=== PATIENT | male | born 1965 | race Asian ===

== ENCOUNTER → 2023-01-11 08:08 | Outpatient (BNVA) | payer OTHER, SELFPAY | PROVIDERS: PCP Internal Medicine; Visit Provider Internal Medicine Rheumatology ==

== ENCOUNTER 2023-01-11 08:49 | Outpatient (REF) | payer OTHER, SELFPAY ==
[2023-01-11 10:32] LABS: MANUAL DIFF FLAG NO
[2023-01-11 10:42] LABS: Basophils Absolute Auto 0.1 X10*3/uL (0.0-0.2); Basophils Percent Auto 0.7 % (0-2); Eosinophils Absolute Auto 0.5 X10*3/uL (0.0-0.4); Eosinophils Percent Auto 6.1 % (0-4); Hematocrit 44.1 % (42.0-52.0); Imm Gran Abs Auto 0.02 X10*3/uL (0.00-0.03); Imm Gran Pct Auto 0.2 % (0.0-0.4); Lymphocytes Absolute Auto 4.2 X10*3/uL (1.2-4.9); Lymphocytes Percent Auto 49.8 % (20-40); Mean Corpuscular Hemoglobin 30.7 pg (27.0-33.0); Mean Corpuscular Volume 90.2 fL (80.0-98.0); Mean Platelet Volume 9.7 fL (9.4-12.4); Monocytes Absolute Auto 0.5 X10*3/uL (0.1-1.2); Monocytes Percent Auto 6.4 % (2-11); Neutrophils Absolute Auto 3.1 x10*3/uL (2.0-8.3); Neutrophils Percent Auto 36.8 % (45-73); Platelet Count 231 X10*3/uL (160-400); Red Blood Count 4.89 X10*6/uL (4.60-5.80); Red Cell Distribution Width 14.2 % (11.0-16.0); White Blood Count 8.3 X10*3/uL (4.8-10.8)
[2023-01-11 11:24] LABS: Erythrocyte Sedimentation Rate 7 MM/HR (0-15)
[2023-01-11 12:12] LABS: Alanine Aminotransferase 32 U/L (0-40); Aspartate Amino Transferase 26 U/L (5-37); C Reactive Protein < 0.10 mg/dL (< or = 0.50); Estimated Glomerular Filt Rate > 60
== END 2023-01-11 08:50 | disposition home or self-care (01) ==
LOC: HO.10HDL 08:49
PROVIDERS: Visit Provider Internal Medicine Rheumatology
DX: L40.50 Arthropathic psoriasis, unspecified (principal); Z79.60 Long term (current) use of unspecified immunomodulators and immunosuppressants; Z79.899 Other long term (current) drug therapy
CPT/HCPCS: 36415; 82565; 84450; 84460; 85025; 85652; 86140

== ENCOUNTER 2023-05-12 10:16 | Outpatient (AMB) | payer OTHER, SELFPAY ==
--- NOTE | 2023-05-12 10:39 | MHC.OFFVIS ---
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 He still notes some discomfort in the right 2nd finger and right 3rd toe. Most of the time he just describes this as feeling swollen and not too much pain. There has been no psoriasis recently. He remains on Humira 40 mg every 2 weeks, methotrexate 20 mg weekly, and folic acid 1 mg daily. He does not seem to have any side effects to these medications as far as he can determine. [facility] Medical History (Updated 01/11/23 @ 08:54 by Maria Guadalupe Bañuelos [facility]) YAMEL (obstructive sleep apnea) GERD (gastroesophageal reflux disease) Hypertension Psoriasis Psoriatic arthritis Surgical History History of laparoscopic appendectomy Family History Mother Hypertension Diabetes Father Hypertension Sister Hypertension Stroke Breast cancer Brother Hypertension Social History Alcohol intake: current Alcohol intake frequency: holidays/special occasions only Alcohol type: beer Patient Tobacco Use Status: Former Tobacco user Quit Date: 2001 Review of Systems Const Details: Negative for appetite change, weight change, fever, chills, malaise and fatigue Eyes Details: Negative for vision change, dry eyes,headaches and dizziness Skin/Breast Details: Negative for itching, rash, hives, Raynaud's symptoms, sun sensitivity, and skin cancer Endo Details: Negative for polyuria and polydypsia David/Lymph Details: Negative for excessive bruising or bleeding. Physical Exam Vital Signs: Last Vital Signs Temp 98.1 F 05/12/23 10:40 Pulse 69 05/12/23 10:40 BP 98/78 05/12/23 10:40 Pulse Ox 96 05/12/23 10:40 Oxygen Delivery Method Room Air 05/12/23 10:40 BMI result Body Mass Index 33.6 APPEARANCE: Patient in no acute distress EYES no redness, pupils equal and reactive to light, eyelids normal EXTREMITIES: No edema, no calf tenderness, normal peripheral pulses. SKIN: No psoriatic lesions appreciated. JOINT EXAM:.?? Cervical Spine:.? Full range of motion without pain; no tenderness. Thoracic Spine:.? No scoliosis.? No tenderness on palpation. Lumbar Spine:.? Alignment normal.? Full range of motion without pain, no tenderness. Chest Wall:.? No tenderness, swelling, increased warmth or erythema. Hands:.? Right: No MCP swelling or tenderness. Slight thickening and tenderness at the 2nd and PIP. Slight bony enlargement with no tenderness at the thumb IP. Other joints have normal pain-free range of motion without tenderness or swelling. Left: Normal pain-free range of motion without tenderness, swelling, increased warmth or erythema. Able to make a full fist and has a good supervisor electric motor testing strength. Wrists:? Left: Slight discomfort with 80 degrees flexion extension with some slight dorsal tenderness but no swelling. Right: Normal pain-free range of motion without tenderness, swelling, increased warmth or erythema. Elbows:. Left: Slight medial pain at the extremes of full extension. There is some minimal medial epicondylar tenderness but no redness or swelling. Right: Normal pain-free range of motion without tenderness, swelling, increased warmth or erythema. Shoulders:.?? Full range of motion with slight discomfort at the extremes of motion. There is some minimal anterior tenderness without adenopathy, weakness, swelling, increased warmth or erythema. Hips:.? Full range of motion with slight lateral and groin pain with extremes of normal internal or external rotation. Hip bursa:.? Mild trochanteric tenderness. Knees:.?? Normal pain-free range of motion without tenderness, swelling, increased warmth or erythema.? There is no effusion or crepitation Ankles:.? Normal pain-free range of motion without tenderness, swelling, increased warmth or erythema. Feet:.? Right: There is some slight thickening and tenderness at the 3rd toe. This is minimal compared to previously. There is no redness or warmth or breakdown of the skin. Left: Slight thickening at the 2nd toe consistent with some very mild dactylitis, again less prominent than had been previously. The digit has minimal tenderness. Tender points:? No tenderness to digital palpation at the occiput, trapezius, second rib, lateral epicondyle, knees, greater trochanter and gluteal area bilaterally. 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 I do not see any signs of active psoriasis at all today. The blood work in January looked okay so but he is due for another lab work today. Assuming those are okay we will continue with current treatment. A return visit 3 months is recommended. Orders: Orders Erythrocyte Sedimentation Rate Today L40.50 - Arthropathic psoriasis, unspecified Complete Blood Count Auto Diff Today L40.50 - Arthropathic psoriasis, unspecified, Z79.899 - Other penit[facility]iary (current) drug therapy C Reactive Protein Today L40.50 - Arthropathic psoriasis, unspecified Alanine Aminotransferase Today L40.50 - Arthropathic psoriasis, unspecified, Z79.899 - Other penitentiary (current) drug therapy Aspartate Amino Transferase Today L40.50 - Arthropathic psoriasis, unspecified, Z79.899 - Other penitentiary (current) drug therapy Creatinine Today L40.50 - Arthropathic psoriasis, unspecified, Z79.899 - Other penitentiary (current) drug therapy Medications: New folic acid 1 mg PO DAILY 90 tabs 3RF L40.50 - Arthropathic psoriasis, unspecified Coding Level of Care Code Est Pt Level 3 (89536) Diagnoses Psoriasis L40.9 Long-term use of immunosuppressant medication Z79.60 Psoriatic arthritis L40.50
[2023-05-12 10:40] VITALS: BP 98/78; PULSE 69; TEMP 36.7; O2SAT 96; BMI 33.6
== END 2023-05-12 10:56 | disposition home or self-care (01) ==
PROVIDERS: PCP Internal Medicine; Visit Provider Internal Medicine Rheumatology
DX: L40.9 Psoriasis, unspecified (principal); Z79.60 Long term (current) use of unspecified immunomodulators and immunosuppressants; L40.50 Arthropathic psoriasis, unspecified
CPT/HCPCS: 99213

== ENCOUNTER → 2023-05-12 10:16 | Outpatient (BNVA) | payer OTHER, SELFPAY | PROVIDERS: PCP Internal Medicine; Visit Provider Internal Medicine Rheumatology ==

== ENCOUNTER 2023-05-12 11:11 | Outpatient (REF) | payer OTHER, SELFPAY ==
[2023-05-12 11:57] LABS: MANUAL DIFF FLAG NO
[2023-05-12 12:22] LABS: Basophils Percent Auto 0.4 % (0-2); Eosinophils Absolute Auto 0.2 X10*3/uL (0.0-0.4); Eosinophils Percent Auto 2.3 % (0-4); Hematocrit 47.8 % (42.0-52.0); Imm Gran Abs Auto 0.02 X10*3/uL (0.00-0.03); Imm Gran Pct Auto 0.3 % (0.0-0.4); Lymphocytes Absolute Auto 3.7 X10*3/uL (1.2-4.9); Lymphocytes Percent Auto 53.6 % (20-40); Mean Corpuscular HGB Conc 33.5 g/dl (31.0-36.0); Mean Corpuscular Hemoglobin 30.1 pg (27.0-33.0); Mean Corpuscular Volume 89.8 fL (80.0-98.0); Mean Platelet Volume 9.9 fL (9.4-12.4); Monocytes Absolute Auto 0.5 X10*3/uL (0.1-1.2); Monocytes Percent Auto 7.1 % (2-11); Neutrophils Absolute Auto 2.5 x10*3/uL (2.0-8.3); Neutrophils Percent Auto 36.3 % (45-73); Platelet Count 223 X10*3/uL (160-400); Red Blood Count 5.32 X10*6/uL (4.60-5.80); Red Cell Distribution Width 13.8 % (11.0-16.0); White Blood Count 6.9 X10*3/uL (4.8-10.8)
[2023-05-12 12:29] LABS: Alanine Aminotransferase 32 U/L (0-40); Aspartate Amino Transferase 26 U/L (5-37); C Reactive Protein < 0.10 mg/dL (< or = 0.50); Estimated Glomerular Filt Rate > 60
[2023-05-12 13:44] LABS: Erythrocyte Sedimentation Rate 7 MM/HR (0-15)
== END 2023-05-12 11:12 | disposition home or self-care (01) ==
LOC: HO.10HDL 11:11
PROVIDERS: Visit Provider Internal Medicine Rheumatology
DX: L40.50 Arthropathic psoriasis, unspecified (principal); Z79.899 Other long term (current) drug therapy
CPT/HCPCS: 36415; 82565; 84450; 84460; 85025; 85652; 86140

== ENCOUNTER 2023-08-10 10:14 | Outpatient (AMB) | payer OTHER, SELFPAY ==
[2023-08-10 10:15] VITALS: BP 112/78; PULSE 86; RESP 15; TEMP 36.2; O2SAT 99; BMI 32.9
--- NOTE | 2023-08-10 10:15 | MHC.OFFVIS ---
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 He remains on methotrexate 20 mg weekly, Humira 40 mg every 2 weeks and folic acid 1 mg daily. In general he has occasional irritation in the skin behind his ears consistent with psoriasis. He has a topical corticosteroid liquid for that. He does get occasional pain in the PIP's in the toes. These are relatively minimally bothersome at present there do not appear to be any side effects with the medications. [facility] Medical History YAMEL (obstructive sleep apnea) GERD (gastroesophageal reflux disease) Hypertension Psoriasis Psoriatic arthritis Surgical History History of laparoscopic appendectomy Family History Mother Hypertension Diabetes Father Hypertension Sister Hypertension Stroke Breast cancer Brother Hypertension Social History Alcohol intake: current Alcohol intake frequency: holidays/special occasions only Alcohol type: beer Patient Tobacco Use Status: Former Tobacco user Quit Date: 2001 Review of Systems Const Details: Negative for appetite change, weight change, fever, chills, malaise and fatigue Eyes Details: Negative for vision change, dry eyes,headaches and dizziness ENT Details: Negative for hearing change, tinnitus, oral ulcer, nose bleeds and oral dryness. Card Details: Negative chest pain, edema and syncope Resp Details: Negative for SOB, cough and wheezing GI Details: Negative indigestion/heartburn, nausea, abdominal pain, bowel changes, diarrhea, constipation and bloody stool. David/Lymph Details: Negative for excessive bruising or bleeding. Physical Exam Vital Signs: Last Vital Signs Temp 97.2 F 08/10/23 10:15 Pulse 86 08/10/23 10:15 Resp 15 08/10/23 10:15 BP 112/78 08/10/23 10:15 Pulse Ox 99 08/10/23 10:15 Oxygen Delivery Method Room Air 08/10/23 10:15 BMI result Body Mass Index 32.9 APPEARANCE: Patient in no acute distress EYES no redness, pupils equal and reactive to light, eyelids normal EXTREMITIES: No edema, no calf tenderness, normal peripheral pulses. SKIN: There is some slight redness behind the left ear but no other skin lesions are notable today. JOINT EXAM:.?? Cervical Spine:.? Full range of motion without pain; no tenderness. Thoracic Spine:.? No scoliosis.? No tenderness on palpation. Lumbar Spine:.? Alignment normal.? Full range of motion without pain, no tenderness. Chest Wall:.? No tenderness, swelling, increased warmth or erythema. Hands:.? Right: No MCP swelling or tenderness. Slight thickening at the thumb IP, 2nd PIP, 3rd PIP and 5th PIP. Third PIP has some minimal tenderness. No flexor tendon triggering. Other joints have normal pain-free range of motion without tenderness or swelling. Left: Normal pain-free range of motion with slight thickening and tenderness at the 3rd PIP. Elsewhere no tenderness, swelling, increased warmth or erythema. Able to make a full fist and has a good reconcilement clerk strength. Wrists:? Left: Slight discomfort with 80 degrees flexion extension with some slight dorsal tenderness but no swelling. Right: Normal pain-free range of motion without tenderness, swelling, increased warmth or erythema. Elbows:. Left: Slight medial pain at the extremes of full extension. There is some minimal medial epicondylar tenderness but no redness or swelling. Right: Normal pain-free range of motion without tenderness, swelling, increased warmth or erythema. Shoulders:.?? Full range of motion with slight discomfort at the extremes of motion. There is some minimal anterior tenderness without adenopathy, weakness, swelling, increased warmth or erythema. Hips:.? Full range of motion with slight lateral and groin pain with extremes of normal internal or external rotation. Hip bursa:.? Mild trochanteric tenderness. Knees:.?? Normal pain-free range of motion without tenderness, swelling, increased warmth or erythema.? There is no effusion or crepitation Ankles:.? Normal pain-free range of motion without tenderness, swelling, increased warmth or erythema. Feet:? Right: There is some slight thickening and tenderness at the 2nd toe. This is minimal compared to previously. There is no redness or warmth or breakdown of the skin. Left: Slight thickening at the 2nd toe consistent with some very mild dactylitis, again less prominent than had been previously. The digit has minimal tenderness. Tender points:? No tenderness to digital palpation at the occiput, trapezius, second rib, lateral epicondyle, knees, greater trochanter and gluteal area bilaterally. ? Results Reviewed Results Reviewed: Laboratory Tests 05/12/23 11:20 WBC 6.9 Hgb 16.0 ESR 7 Creatinine 1.06 AST 26 ALT 32 C-Reactive Protein < 0.10 Assessment & Plan Assessment & Plan (1) Psoriasis: Code(s): L40.9 - Psoriasis, unspecified (2) Long-term use of immunosuppressant medication: Code(s): Z79.60 - half-way (current) use of unspecified immunomodulators and immunosuppressants (3) Psoriatic arthritis: Comment: Onset 10/2020 methotrexate started 01/2021 [place]ingo jon Code(s): L40.50 - Arthropathic psoriasis, unspecified Plan Psoriatic arthritis and psoriasis with good control of those disorders with current treatment. There is only some minimal dactylitis in the toes that really isn't bother him much so I do not think we need to change treatment. There is slight patch of psoriasis behind the left ear which is treated topically. He needs to have lab work to monitor his methotrexate use. If those look okay we can continue and plan to see him back in about 3-4 months. Medications: New methotrexate sodium 20 mg (8 x 2.5 mg) PO QWEEK 96 tabs 1RF L40.9 - Psoriasis, unspecified Refilled folic acid 1 mg PO DAILY 90 tabs 3RF L40.50 - Arthropathic psoriasis, unspecified Coding Level of Care Code Est Pt Level 3 (99435) Diagnoses Psoriasis L40.9 Long-term use of immunosuppressant medication Z79.60 Psoriatic arthritis L40.50
== END 2023-08-10 10:37 | disposition home or self-care (01) ==
LOC: HO.RHE 10:14
PROVIDERS: PCP Internal Medicine; Visit Provider Internal Medicine Rheumatology
DX: L40.9 Psoriasis, unspecified (principal); Z79.60 Long term (current) use of unspecified immunomodulators and immunosuppressants; L40.50 Arthropathic psoriasis, unspecified
CPT/HCPCS: 99213

== ENCOUNTER → 2023-08-10 10:14 | Outpatient (BNVA) | payer OTHER, SELFPAY | PROVIDERS: PCP Internal Medicine; Visit Provider Internal Medicine Rheumatology ==

== ENCOUNTER 2023-08-10 11:22 | Outpatient (REF) | payer OTHER, SELFPAY ==
[2023-08-10 13:14] LABS: MANUAL DIFF FLAG NO
[2023-08-10 13:41] LABS: Alanine Aminotransferase 29 U/L (0-40); Aspartate Amino Transferase 25 U/L (5-37); C Reactive Protein < 0.10 mg/dL (< or = 0.50); Estimated Glomerular Filt Rate > 60
[2023-08-10 13:43] LABS: Basophils Percent Auto 0.5 % (0-2); Eosinophils Absolute Auto 0.2 X10*3/uL (0.0-0.4); Eosinophils Percent Auto 2.2 % (0-4); Hematocrit 44.9 % (42.0-52.0); Imm Gran Abs Auto 0.01 X10*3/uL (0.00-0.03); Imm Gran Pct Auto 0.1 % (0.0-0.4); Lymphocytes Percent Auto 50.6 % (20-40); Mean Corpuscular HGB Conc 33.4 g/dl (31.0-36.0); Mean Corpuscular Hemoglobin 30.3 pg (27.0-33.0); Mean Corpuscular Volume 90.7 fL (80.0-98.0); Mean Platelet Volume 9.7 fL (9.4-12.4); Monocytes Absolute Auto 0.5 X10*3/uL (0.1-1.2); Neutrophils Absolute Auto 3.2 x10*3/uL (2.0-8.3); Neutrophils Percent Auto 40.6 % (45-73); Platelet Count 246 X10*3/uL (160-400); Red Blood Count 4.95 X10*6/uL (4.60-5.80); Red Cell Distribution Width 13.9 % (11.0-16.0); White Blood Count 7.8 X10*3/uL (4.8-10.8)
[2023-08-10 14:42] LABS: Erythrocyte Sedimentation Rate 6 MM/HR (0-15)
== END 2023-08-10 11:23 | disposition home or self-care (01) ==
LOC: HO.10HDL 11:22
PROVIDERS: Visit Provider Internal Medicine Rheumatology
DX: L40.50 Arthropathic psoriasis, unspecified (principal); Z79.899 Other long term (current) drug therapy
CPT/HCPCS: 36415; 82565; 84450; 84460; 85025; 85652; 86140

== ENCOUNTER 2023-12-13 08:39 | Outpatient (AMB) | payer OTHER, SELFPAY ==
--- NOTE | 2023-12-13 08:43 | A.OFFVIS_ITS ---
Intake Vital Signs 12/13/23 08:47 Height 5 ft 5 in Weight 201 lb 8.04 oz BMI 33.5 BP 120/80 Blood Pressure Location Rt brachial Position Sitting Pulse 71 Pulse Source Pulse Oximeter Temp 97.5 F Temp Source Skin Pulse Oximetry (%) 97 Oxygen Delivery Method Room Air Intake Visit Reasons: PSA/cm Intake Note: Patient last seen 08/10/[address] Sanders, presents today for follow up. 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 Cooper 58 yoM returns for follow-up of his psoriasis and psoriatic arthritis. He remains on methotrexate 20 mg weekly, Humira 40 mg every 2 weeks and folic acid 1 mg daily. He states that he is doing well and the medication is working. He takes tylenol occasionally. He has a small patch behind his left ear consistent with psoriasis and a spot on the the top lip. He uses a topical corticosteroid liquid for those areas. He does get occasional pain in the PIP's in the toes. These are relatively minimally bothersome at present. He denies side effects with the medications. Patient denies chest pains, heart palpitations. [facility] Medical History YAMEL (obstructive sleep apnea) GERD (gastroesophageal reflux disease) Hypertension Psoriasis Psoriatic arthritis Surgical History History of laparoscopic appendectomy Family History Mother Hypertension Diabetes Father Hypertension Sister Hypertension Stroke Breast cancer Brother Hypertension Social History Alcohol intake: current Alcohol intake frequency: holidays/special occasions only Alcohol type: beer Patient Tobacco Use Status: Former Tobacco user Quit Date: 2001 Physical Exam Vital Signs: Last Vital Signs Temp 97.5 F 12/13/23 08:47 Pulse 71 12/13/23 08:47 BP 120/80 12/13/23 08:47 Pulse Ox 97 12/13/23 08:47 Oxygen Delivery Method Room Air 12/13/23 08:47 BMI result Body Mass Index 33.5 APPEARANCE: Patient in no acute distress EYES no redness, pupils equal and reactive to light, eyelids normal EXTREMITIES: No edema, no calf tenderness, normal peripheral pulses. SKIN: There is some slight redness behind the left ear but no other skin lesions are notable today. JOINT EXAM:.?? Cervical Spine:.? Full range of motion without pain; no tenderness. Thoracic Spine:.? No scoliosis.? No tenderness on palpation. Lumbar Spine:.? Alignment normal.? Full range of motion without pain, no tenderness. Chest Wall:.? No tenderness, swelling, increased warmth or erythema. Hands:.? Right: No MCP swelling or tenderness. Slight thickening at the thumb IP, 2nd PIP, 3rd PIP and 5th PIP. Third PIP has no tenderness but cannot complete fold into fist No flexor tendon triggering. Other joints have normal pain-free range of motion without tenderness or swelling. Left: Normal pain- free range of motion but slight thickening that causes the 3rd PIP not to completely fold into fist. Elsewhere no tenderness, swelling, increased warmth or erythema. Able to make a full fist and has a good trailer steerer strength. Wrists:? Left: Slight discomfort with 80 degrees flexion extension with some slight dorsal tenderness but no swelling. Right: Normal pain-free range of motion without tenderness, swelling, increased warmth or erythema. Elbows:. Left: Slight medial pain at the extremes of full extension. There is some minimal medial epicondylar tenderness but no redness or swelling. Right: Normal pain-free range of motion without tenderness, swelling, increased warmth or erythema. Shoulders:.?? Full range of motion with slight discomfort at the extremes of motion. There is some minimal anterior tenderness without adenopathy, weakness, swelling, increased warmth or erythema. Hips:.? Full range of motion with slight lateral and groin pain with extremes of normal internal or external rotation. Hip bursa:.? Mild trochanteric tenderness. Knees:.?? Normal pain-free range of motion without tenderness, swelling, increased warmth or erythema.? There is no effusion or crepitation Ankles:.? Normal pain-free range of motion without tenderness, swelling, increased warmth or erythema. Feet:? Right: There is some slight thickening and but tenderness at the 2nd toe. This is minimal compared to previously. There is no redness or warmth or breakdown of the skin. Left: Slight thickening at the 2nd toe consistent with some very mild dactylitis, again less prominent than had been previously. The digit usually has minimal tenderness but not today Tender points:? No tenderness to digital palpation at the occiput, trapezius, second rib, lateral epicondyle, knees, greater trochanter and gluteal area bilaterally. ? 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 There remains some minimal dactylitis in the toes that is not bothersome and does not require a change treatment at this time. There is slight patch of psoriasis behind the left ear which is treated topically. We will continue MTX 20mg QW, Folic Acid 1mg QD and Humira 40 mg QOW #We will continue to monitor CBC and CMP. We will obtain labs 1 week before next visit. The patient knows to hold medications in the event of infections, fevers, surgery, or non-healing wounds. I spent 25 minutes reviewing history, evaluating patient and documenting. Orders: Orders C Reactive Protein 4 Months L40.50 - Arthropathic psoriasis, unspecified, Z79.60 - [facility] (current) use of unspecified immunomodulators and immunosuppressants Comprehensive Met. 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 immunomodulators and immunosuppressants Complete Blood Count Auto Diff 4 Months L40.50 - Arthropathic psoriasis, unspecified, Z79.60 - [facility] (current) use of unspecified immunomodulators and immunosuppressants Uric Acid 4 Months L40.50 - Arthropathic psoriasis, unspecified, 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
[2023-12-13 08:47] VITALS: BP 120/80; PULSE 71; TEMP 36.4; O2SAT 97; BMI 33.5
== END 2023-12-13 09:14 | disposition home or self-care (01) ==
PROVIDERS: PCP Internal Medicine; Visit Provider Nurse Practitioner Family
DX: L40.9 Psoriasis, unspecified (principal); Z79.60 Long term (current) use of unspecified immunomodulators and immunosuppressants; L40.50 Arthropathic psoriasis, unspecified
CPT/HCPCS: 99213

== ENCOUNTER → 2023-12-13 08:39 | Outpatient (BNVA) | payer OTHER, SELFPAY | PROVIDERS: PCP Internal Medicine; Visit Provider Nurse Practitioner Family ==

== ENCOUNTER 2024-04-09 11:00 | Outpatient (REF) | payer OTHER, SELFPAY ==
[2024-04-09 11:55] LABS: MANUAL DIFF FLAG NO
[2024-04-09 11:56] LABS: Basophils Percent Auto 0.3 % (0-2); Eosinophils Absolute Auto 0.1 X10*3/uL (0.0-0.4); Eosinophils Percent Auto 1.6 % (0-4); Hematocrit 45.6 % (42.0-52.0); Hemoglobin 15.4 g/dl (14.0-18.0); Imm Gran Abs Auto 0.01 X10*3/uL (0.00-0.03); Imm Gran Pct Auto 0.2 % (0.0-0.4); Lymphocytes Percent Auto 49.3 % (20-40); Mean Corpuscular HGB Conc 33.8 g/dl (31.0-36.0); Mean Corpuscular Hemoglobin 30.3 pg (27.0-33.0); Mean Corpuscular Volume 89.6 fL (80.0-98.0); Mean Platelet Volume 9.7 fL (9.4-12.4); Monocytes Absolute Auto 0.4 X10*3/uL (0.1-1.2); Monocytes Percent Auto 6.4 % (2-11); Neutrophils Absolute Auto 2.6 x10*3/uL (2.0-8.3); Neutrophils Percent Auto 42.2 % (45-73); Platelet Count 226 X10*3/uL (160-400); Red Blood Count 5.09 X10*6/uL (4.60-5.80); Red Cell Distribution Width 13.9 % (11.0-16.0); White Blood Count 6.1 X10*3/uL (4.8-10.8)
[2024-04-09 12:29] LABS: Alanine Aminotransferase 20 U/L (0-40); Albumin Level 4.3 g/dL (3.5-5.0); Alkaline Phosphatase 73 U/L (39-117); Anion Gap 12 (12-20); Aspartate Amino Transferase 18 U/L (5-37); Bilirubin Total 0.4 mg/dL (0.0-1.0); Blood Urea Nitrogen 20 mg/dL (9-16); C Reactive Protein < 0.10 mg/dL (< or = 0.50); Calcium 9.4 mg/dL (8.4-10.2); Carbon Dioxide 27 mmol/L (22-29); Chloride 109 mmol/L (96-108); Estimated Glomerular Filt Rate > 60; Glucose Random 107 mg/dL (60-115); Sodium 144 mmol/L (135-145); Total Protein 7.5 g/dL (6.5-8.0); Uric Acid 5.4 mg/dL (3.4-7.0)
[2024-04-09 12:35] LABS: Erythrocyte Sedimentation Rate 5 MM/HR (0-15)
[2024-04-10 11:19] LABS: Prot Elec - Albumin 4.1 g/dL (3.8-4.8); Prot Elec - Alpha1 0.2 g/dL (0.2-0.3); Prot Elec - Alpha2 0.7 g/dL (0.5-0.9); Prot Elec - Beta 1 0.5 g/dL (0.4-0.6); Prot Elec - Beta 2 0.5 g/dL (0.2-0.5); Prot Elec - Gamma 1.3 g/dL (0.8-1.7); Prot Elec - Total Protein 7.3 g/dL (6.1-8.1)
[2024-04-11 15:39] LABS: IgA 309 mg/dL (47-310); IgG 1315 mg/dL (600-1640); IgM 71 mg/dL (50-300)
== END 2024-04-09 11:01 | disposition home or self-care (01) ==
LOC: HO.10HDL 11:00
PROVIDERS: Visit Provider Nurse Practitioner Family
DX: Z79.60 Long term (current) use of unspecified immunomodulators and immunosuppressants (principal); L40.50 Arthropathic psoriasis, unspecified
CPT/HCPCS: 36415; 80053; 82784; 84165; 84550; 85025; 85652; 86140; 86334

== ENCOUNTER 2024-04-13 08:50 | Outpatient (AMB) | payer OTHER, SELFPAY ==
--- NOTE | 2024-04-13 08:58 | A.OFFVIS_ITS ---
Vital Signs 04/13/24 09:01 Height 5 ft 5 in Weight 200 lb 2.876 oz BMI 33.3 BP 118/80 Blood Pressure Location Rt brachial Position Sitting Pulse 57 Pulse Source Pulse Oximeter Pulse Oximetry (%) 95 Oxygen Delivery Method Room Air Intake Visit Reasons: PsO/PSA MTX and Humira/LM Intake Note: Patient presents for PsO/PsA MTX and Humira. Allergies prednisone Adverse Reaction (Unknown, Verified 04/13/24 09:00) Itching Medication List - Last Reconciled 04/13/24 by John Cruz MD adalimumab (Humira(CF) Pen) 40 mg (0.4 mL) subcut Q2W atorvastatin 10 mg PO DAILY betamethasone dipropionate 0.05% 1 appl topical DAILY fexofenadine 180 mg PO DAILY folic acid 1 mg PO DAILY lisinopril-hydrochlorothiazide 20-12.5 mg 1 tab PO BID methotrexate sodium 20 mg (8 x 2.5 mg) PO QWEEK HPI Comments Details: This is a 58-year-old male with psoriasis and psoriatic arthritis who presents for follow-up. On methotrexate 20 mg weekly and Humira 40 mg every other week. States that he is doing about the same overall, doing fairly well. He has a tiny psoriasis patch behind his left ear, treated with topicals, he also has intermittent right knee pain and intermittent right 2nd and 5th toe pain, no significant swelling. [facility] Medical History YAMEL (obstructive sleep apnea) GERD (gastroesophageal reflux disease) Hypertension Psoriasis Psoriatic arthritis Surgical History History of laparoscopic appendectomy Family History Mother Hypertension Diabetes Father Hypertension Sister Hypertension Stroke Breast cancer Brother Hypertension Social History Alcohol intake: current Alcohol intake frequency: holidays/special occasions only Alcohol type: beer Patient Tobacco Use Status: Former Tobacco user Review of Systems [facility] [place] Reports arthralgias and Reports stiffness Skin/Breast Reports rash Physical Exam Vital Signs: Last Vital Signs Pulse 57 04/13/24 09:01 BP 118/80 04/13/24 09:01 Pulse Ox 95 04/13/24 09:01 Oxygen Delivery Method Room Air 04/13/24 09:01 BMI result Body Mass Index 33.3 Const General: cooperative, healthy appearing and comfortable Nutritional Appearance: obese Orientation/consciousness: patient oriented x3 Limitations: no limitations HEENT Head: Yes normocephalic and Yes atraumatic Mouth: moist mucous membranes Resp Effort & Inspection: normal respiratory effort and able to speak in complete sentences Auscultation: clear to auscultation bilaterally Cardio Rate: regular rate Rhythm: regular rhythm Skin Other: Small patch of psoriasis behind left ear Neuro General: patient oriented x3 Extrem Other: Minimal osteoarthritic changes of both hands with no active synovitis Minimal right 3rd PIP tenderness without swelling Mild right knee pain with full flexion No knee swelling bilaterally Mild right 2nd and 5th toe DIP tenderness no significant swelling Assessment & Plan Assessment & Plan (1) Psoriatic arthritis: Comment: Onset 10/2020 methotrexate started 01/2021 Humira added effective Code(s): L40.50 - Arthropathic psoriasis, unspecified Category: Medical Plan: This is a 58-year-old male with psoriasis and psoriatic arthritis who presents for follow-up. On methotrexate 20 mg weekly and Humira 40 mg every other week. On exam he has very subtle dactylitis affecting his right 2nd and 5th toes. Tiny patch of psoriasis behind left ear. Discussed with patient that we can consider advancing his Humira to 40 mg weekly. 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 Patient fully aware. Advised patient to seek medical care [facility] if patient has an infection and advised patient to stop the medication until the infection is resolved. (4) Latent tuberculosis by blood test: Comment: Pos Quantiferon test 09/2020. Probably had BCG in [facility] as a child Started on isoniazid 09/15/20 - stopped 07/2021 Code(s): Z22.7 - Latent tuberculosis Category: Medical Plan: No need to repeat QuantiFERON test Plan I spent 30 minutes reviewing patient's chart, evaluating patient, ordering diagnostic workup, counseling patient and documenting in the chart Orders: Orders Complete Blood Count Auto Diff 4 Months L40.50 - Arthropathic psoriasis, unspecified, Z79.60 - custodial (current) use of unspecified immunomodulators and immunosuppressants Comprehensive Met. 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.60 - 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) use of unspecified immunomodulators and immunosuppressants Medications: Changed From adalimumab (Humira(CF) Pen) 40 mg (0.4 mL) subcut Q2W 5 ea 0RF L40.50 - Arthropathic psoriasis, unspecified To Humira(CF) Pen (adalimumab) 40 mg (0.4 mL) subcut Q2W 2 ea 4RF NS L40.50 - Arthropathic psoriasis, unspecified Refilled methotrexate sodium 20 mg (8 x 2.5 mg) PO QWEEK 96 tabs 1RF L40.9 - Psoriasis, unspecified folic acid 1 mg PO DAILY 90 tabs 3RF L40.50 - Arthropathic psoriasis, unspecified Coding Level of Care Code Est Pt Level 4 (27103) Diagnoses Psoriatic arthritis L40.50 Psoriasis L40.9 Long-term use of immunosuppressant medication Z79.60 Latent tuberculosis by blood test Z22.7
[2024-04-13 09:01] VITALS: BP 118/80; PULSE 57; O2SAT 95; BMI 33.3
== END 2024-04-13 09:42 | disposition home or self-care (01) ==
PROVIDERS: PCP Internal Medicine; Visit Provider Student in an Organized Health Care Education/Training Program
DX: L40.50 Arthropathic psoriasis, unspecified (principal); L40.9 Psoriasis, unspecified; Z79.60 Long term (current) use of unspecified immunomodulators and immunosuppressants; Z22.7 Latent tuberculosis
CPT/HCPCS: 99214

== ENCOUNTER → 2024-04-13 08:50 | Outpatient (BNVA) | payer OTHER, SELFPAY | PROVIDERS: PCP Internal Medicine; Visit Provider Student in an Organized Health Care Education/Training Program ==

== ENCOUNTER 2024-09-14 13:38 | Outpatient (AMB) | payer OTHER, SELFPAY ==
[2024-09-14 13:39] VITALS: BP 122/80; PULSE 83; O2SAT 96; BMI 33.5
--- NOTE | 2024-09-14 13:39 | MHC.OFFVIS ---
Vital Signs 09/14/24 13:39 Height 5 ft 5 in Weight 201 lb 8.04 oz BMI 33.5 BP 122/80 Blood Pressure Location Lt brachial Position Sitting Pulse 83 Pulse Source Pulse Oximeter Pulse Oximetry (%) 96 Oxygen Delivery Method Room Air Intake Visit Reasons: PsA/cm Intake Note: Patient last seen by Doctor John Cruz on 04/13/24. Presents today for PsA follow up and test results. Patient would like blood test results today. Patient needs refill of 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 and Humira. Allergies prednisone Adverse Reaction (Unknown, Verified 09/14/24 13:42) Itching Medication List - Last Reconciled 09/14/24 by Mallory Ontiveros MD atorvastatin 10 mg PO DAILY betamethasone dipropionate 0.05% 1 appl topical DAILY fexofenadine 180 mg PO DAILY folic acid 1 mg PO DAILY Humira(CF) Pen (adalimumab) 40 mg (0.4 mL) subcut Q2W NS lisinopril-hydrochlorothiazide 20-12.5 mg 1 tab PO BID methotrexate sodium 20 mg (8 x 2.5 mg) PO QWEEK HPI Comments Details: Patient is a 59 y.o. male with HTN, HLD, psoriasis and PsA who presents today for follow up Interval History: Patient last seen 04/13/[address] Cruz. At that time he was on methotrexate 20 mg weekly and Humira 40 mg every other week and doing well overall. There was note of some subtle dactylitis affecting his toes and the decision to increase his Humira from every other week to weekly was brought forward however patient prefer to stay on every other week Humira. 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 YAMEL (obstructive sleep apnea) GERD (gastroesophageal reflux disease) Hypertension Psoriasis Psoriatic arthritis Surgical History History of laparoscopic appendectomy Family History Mother Hypertension Diabetes Father Hypertension Sister Hypertension Stroke Breast cancer Brother Hypertension Social History Alcohol intake: current Alcohol intake frequency: holidays/special occasions only Alcohol type: beer Patient Tobacco Use Status: Former Tobacco user Review of Systems Const Details: Review of Systems Constitutional: Denies fever, chills, weight loss ENT: Denies vision changes, eye pain or eye redness, dental caries, dry mouth GI: Denies nausea, vomiting, diarrhea, abdominal pain, change in BM Pulm: Denies SOB, PUCKETT, hemoptysis, wheezing Cards: Denies chest pain, palpitations Skin: Denies Raynaud's, rash, nail changes, photosensitivity, 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 Well appearing and in no apparent painful distress HEENT Conjunctiva and sclera clear. ?Pupils equal round and reactive to light. ?No lymphadenopathy. ? CHEST/RESPIRATORY SYSTEM Normal respiratory effort and able to speak in complete sentences. ?Clear to auscultation bilaterally. ?No crackles, rales, rhonchi, wheezes heard. CARDIAC SYSTEM Regular rate and rhythm. ?S1 and S2 heard no murmurs. 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 No deformities noted. ?No synovitis noted to the MCPs, PIPs or DIPs. ?Mild tenderness to palpation of the right 3rd PIP. But no evidence of dactylitis Wrists: ?Full range of motion at the wrists without pain. ?No tenderness to palpation or synovitis noted to the wrists. Elbows: Full range of motion without pain. No tenderness, weakness, swelling, increased warmth or erythema. Shoulders: Full range of motion without pain. No tenderness, weakness, swelling, increased warmth or erythema. Hip bursa: No tenderness to palpation Knees: ?Full range of motion. ?No tenderness, swelling, increased warmth or erythema.?No effusion or crepitations Ankles: Full range of motion. ?No tenderness, swelling, increased warmth or erythema.? Feet: ?Negative squeeze test. ?No tenderness to palpation or swelling of the MTPs. Tender points:?No tenderness to palpation of the bilateral trapezius, supraspinatus, greater trochanters, anterior costochondral junctions, bilateral gluteal areas, bilateral suboccipital muscle insertions SKIN Small scaly psoriatic patch behind left ear Results Reviewed Results Reviewed: Laboratory Tests 04/09/24 11:05 WBC 6.1 RBC 5.09 Hgb 15.4 Hct 45.6 Plt Count 226 ESR 5 Sodium 144 Potassium 4.0 Chloride 109 H Carbon Dioxide 27 Anion Gap 12 BUN 20 H Creatinine 0.97 Total Bilirubin 0.4 AST 18 ALT 20 Alkaline Phosphatase 73 C-Reactive Protein < 0.10 Assessment & Plan Assessment & Plan (1) Psoriatic arthritis: Comment: Onset 10/2020 methotrexate started 01/2021 Humira added effective Code(s): L40.50 - Arthropathic psoriasis, unspecified Category: Medical Plan: #PsA/PsO Patient with PsO and PsA. Currently overall doing well. He would benefit from increase in Humira to weekly as he still has some swelling to his fingers that occurs frequently. No dactylitis seen today on exam Small patch of psoriasis behind left ear Patient prefers to continue same regimen Plan - CBC, CMP, ESR, CRP - 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 20mg weekly - Folic Acid 1 mg - Humira 40mg SC every other week - RTC 4 months (2) Long-term use of immunosuppressant medication: Code(s): Z79.60 - senior care (current) use of unspecified immunomodulators and immunosuppressants Category: Medical Plan: #Long-term Use of TNF Inhibitors: Humira Discussed with the patient the benefits and risks of TNF inhibitors for the management of the rheumatic condition Benefits include reduce pain, maintenance of remission and reduction of flares as well as ?progression of the disease Risks include injection sites/infusion reactions, serious infections (such as bacterial infections, opportunistic infections), malignancy, delaminating syndromes, autoimmune phenomena, CHF exacerbations, palmar plantar psoriasis and cytopenias Recommended rotating injection sites, and holding medication during and for up to 1 week after resolution of a febrile illness or open skin wound (3) 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, retirement, current use: Code(s): Z79.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 Limit alcohol and avoid Bactrim ? 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 Panel 4 Months L40.50 - Arthropathic psoriasis, unspecified, L40.9 - Psoriasis, unspecified, Z79.60 - senior care (current) use of unspecified immunomodulators and immunosuppressants Hepatitis A,B,C Profile 4 Months L40.50 - Arthropathic psoriasis, unspecified, L40.9 - Psoriasis, unspecified, Z79.60 - senior care (current) use of unspecified immunomodulators and immunosuppressants Erythrocyte Sedimentation Rate Today L40.50 - Arthropathic psoriasis, unspecified, L40.9 - Psoriasis, unspecified, Z79.60 - senior care (current) use of unspecified immunomodulators and immunosuppressants Hepatitis A,B,C Profile Today L40.50 - Arthropathic psoriasis, unspecified, L40.9 - Psoriasis, unspecified, 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.60 - 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) use of unspecified immunomodulators and immunosuppressants C Reactive Protein 4 Months L40.50 - Arthropathic psoriasis, unspecified, L40.9 - Psoriasis, unspecified, Z79.60 - 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) use of unspecified immunomodulators and immunosuppressants Erythrocyte Sedimentation Rate 4 Months L40.50 - Arthropathic psoriasis, unspecified, L40.9 - Psoriasis, unspecified, Z79.60 - senior care (current) use of unspecified immunomodulators and immunosuppressants Complete Blood Count Auto Diff Today L40.50 - Arthropathic psoriasis, unspecified, L40.9 - Psoriasis, unspecified, Z79.60 - senior care (current) use of unspecified immunomodulators and immunosuppressants Comprehensive Met. Panel Today L40.50 - Arthropathic psoriasis, unspecified, L40.9 - Psoriasis, unspecified, Z79.60 - 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) use of unspecified immunomodulators and immunosuppressants C Reactive Protein Today L40.50 - Arthropathic psoriasis, unspecified, L40.9 - Psoriasis, unspecified, Z79.60 - 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) use of unspecified immunomodulators and immunosuppressants Medications: Changed From methotrexate sodium 20 mg (8 x 2.5 mg) PO QWEEK 96 tabs 1RF L40.9 - Psoriasis, unspecified To methotrexate sodium 20 mg (8 x 2.5 mg) PO QWEEK 90 days 104 tabs 1RF L40.9 - Psoriasis, unspecified Refilled folic acid 1 mg PO DAILY 90 tabs 3RF L40.50 - Arthropathic psoriasis, unspecified Humira(CF) Pen (adalimumab) 40 mg (0.4 mL) subcut Q2W 2 ea 6RF NS L40.50 - Arthropathic psoriasis, unspecified Coding Level of Care Code Est Pt Level 3 (84398) Complex EM visit Add On G2211 Diagnoses Psoriatic arthritis L40.50 Long-term use of immunosuppressant medication Z79.60 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
== END 2024-09-14 14:00 | disposition home or self-care (01) ==
LOC: HO.RHE 13:38
PROVIDERS: PCP Internal Medicine; Visit Provider Student in an Organized Health Care Education/Training Program
DX: L40.50 Arthropathic psoriasis, unspecified (principal); Z79.60 Long term (current) use of unspecified immunomodulators and immunosuppressants; Z79.631 Long term (current) use of antimetabolite agent
CPT/HCPCS: 99213; G2211

== ENCOUNTER 2024-09-14 13:38 | Outpatient (REF) | payer OTHER, SELFPAY ==
[2024-09-14 14:30] LABS: MANUAL DIFF FLAG NO
[2024-09-14 14:35] LABS: Basophils Percent Auto 0.3 % (0-2); Eosinophils Absolute Auto 0.2 X10*3/uL (0.0-0.4); Eosinophils Percent Auto 3.5 % (0-4); Hematocrit 44.2 % (42.0-52.0); Hemoglobin 15.4 g/dl (14.0-18.0); Imm Gran Abs Auto 0.01 X10*3/uL (0.00-0.03); Imm Gran Pct Auto 0.2 % (0.0-0.4); Lymphocytes Absolute Auto 2.4 X10*3/uL (1.2-4.9); Lymphocytes Percent Auto 39.2 % (20-40); Mean Corpuscular HGB Conc 34.8 g/dl (31.0-36.0); Mean Corpuscular Hemoglobin 30.6 pg (27.0-33.0); Mean Corpuscular Volume 87.9 fL (80.0-98.0); Mean Platelet Volume 9.6 fL (9.4-12.4); Monocytes Absolute Auto 0.5 X10*3/uL (0.1-1.2); Neutrophils Percent Auto 48.8 % (45-73); Platelet Count 217 X10*3/uL (160-400); Red Blood Count 5.03 X10*6/uL (4.60-5.80); Red Cell Distribution Width 13.8 % (11.0-16.0); White Blood Count 6.2 X10*3/uL (4.8-10.8)
[2024-09-14 14:59] LABS: Alanine Aminotransferase 38 U/L (0-40); Albumin Level 4.1 g/dL (3.5-5.0); Alkaline Phosphatase 78 U/L (39-117); Anion Gap 11 (12-20); Aspartate Amino Transferase 31 U/L (5-37); Blood Urea Nitrogen 17 mg/dL (9-16); C Reactive Protein 0.16 mg/dL (< or = 0.50); Calcium 8.7 mg/dL (8.4-10.2); Carbon Dioxide 25 mmol/L (22-29); Chloride 110 mmol/L (96-108); Estimated Glomerular Filt Rate > 60; Glucose Random 102 mg/dL (60-115); Potassium 3.5 mmol/L (3.3-5.1); Sodium 142 mmol/L (135-145); Total Protein 7.3 g/dL (6.5-8.0)
[2024-09-14 15:14] LABS: Erythrocyte Sedimentation Rate 5 MM/HR (0-15)
[2024-09-15 08:31] LABS: HBS Num1 66.04 mIU/mL (0-7.99); HBsAGNum1 0.42 S/CO (0.00-0.99); Hepatitis A Antibody IgM 0.22 Index (0-0.79); Hepatitis B Surface Antigen Negative (Negative); ~Hepatitis A Antibody IgM Nonreactive (Nonreactive); ~Hepatitis B Surface Antibody REACTIVE (Nonreactive); ~Hepatitis C Antibody Nonreactive (Nonreactive)
[2024-09-15 09:57] LABS: HBc Num2 1.89 S/CO; Hepatitis B Core Antibody Reactive (Nonreactive)
== END 2024-09-14 13:39 | disposition home or self-care (01) ==
LOC: HO.LAB 13:38
PROVIDERS: PCP Internal Medicine; Visit Provider Student in an Organized Health Care Education/Training Program
DX: L40.50 Arthropathic psoriasis, unspecified (principal); Z79.60 Long term (current) use of unspecified immunomodulators and immunosuppressants; L40.9 Psoriasis, unspecified
CPT/HCPCS: 36415; 80053; 85025; 85652; 86140; 86704; 86706; 86709; 86803; 87340

== ENCOUNTER 2025-06-20 08:05 | Outpatient (AMB) | payer OTHER, SELFPAY ==
--- NOTE | 2025-06-20 08:09 | MHC.OFFVIS ---
Vital Signs 06/20/25 08:16 Height 5 ft 5 in Weight 196 lb 13.965 oz BMI 32.8 BP 132/90 H Blood Pressure Location Lt brachial Position Sitting Pulse 63 Pulse Source Pulse Oximeter Pulse Oximetry (%) 98 Oxygen Delivery Method Room Air Intake Visit Reasons: follow up PsA Intake Note: Patient presents for PsA follow up. Allergies prednisone Adverse Reaction (Unknown, Verified 06/20/25 08:14) Itching Medication List - Last Reconciled 06/20/25 by Mallory Ontiveros MD atorvastatin 10 mg PO DAILY betamethasone dipropionate 0.05% 1 appl topical DAILY fexofenadine 180 mg PO DAILY folic acid 1 mg PO DAILY Humira(CF) Pen (adalimumab) 40 mg (0.4 mL) subcut Q2W NS lisinopril-hydrochlorothiazide 20-12.5 mg 1 tab PO BID methotrexate sodium 20 mg (8 x 2.5 mg) PO QWEEK 90 days HPI Comments Details: Patient is a 60 y.o. male with HTN, HLD, psoriasis and PsA who presents today for follow up Interval History: Patient last seen 09/14/24 with me - On methotrexate 20mg every week PO, folic acid 1mg daily and Humira 40mg SC every 2 weeks - Patient states he is doing overall well - Has intermittent swelling to his hands especially in the AM - No prolonged AM stiffness Today - On methotrexate 20mg every week PO, folic acid 1mg daily and Humira 40mg SC every 2 weeks - Continues to do overall well - Complains of stiffness to his hands in the morning lasting 10-15 mins - Bilateral 3rd PIPs tender - No dactylitis - Still has PsO patch behind ear Rheumatologic History: PsA: Onset 10/2020 methotrexate started 01/2021 Humira added effective Current Rheumatology Medication(s): 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 20mg every week Folic acid 1 mg daily Humira 40mg SC every other week [facility] Medical History (Updated 09/18/24 @ 13:05 by Mallory Ontiveros MD) Hepatitis B core antibody positive 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, 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, 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 YAMEL (obstructive sleep apnea) GERD (gastroesophageal reflux disease) Hypertension Psoriasis Psoriatic arthritis Surgical History History of laparoscopic appendectomy Family History Mother Hypertension Diabetes Father Hypertension Sister Hypertension Stroke Breast cancer Brother Hypertension Social History Alcohol intake: current Alcohol intake frequency: holidays/special occasions only Alcohol type: beer Patient Tobacco Use Status: Former Tobacco user Review of Systems Const Details: Review of Systems Constitutional: Denies fever, chills, weight loss ENT: Denies vision changes, eye pain or eye redness, dental caries, dry mouth GI: Denies nausea, vomiting, diarrhea, abdominal pain, change in BM Pulm: Denies SOB, PUCKETT, hemoptysis, wheezing Cards: Denies chest pain, palpitations Skin: Denies Raynaud's, rash, nail changes, photosensitivity, IN PROCESS INSPECTOR: Denies headaches, weakness, paresthesias, recurrent falls MSK: as per HPI All other systems reviewed and are unremarkable except noted above Physical Exam Exam Exam: Vital signs reviewed Physical Examination CONSTITUITIONAL Patient alert and cooperative. Well appearing and in no apparent painful distress MSK Hands Right Hand: Able to make a fist. No swelling or tenderness to palpation of the MCPs, PIPs or DIPs. TTP of the 3rd PIP without swelling Left Hand: Able to make a fist. No swelling or tenderness to palpation of the MCPs, PIPs or DIPs. TTP of the 3rd PIP without swelling Herbedens nodes noted bilaterally Wrists Right Wrist: Full ROM to flexion and extension. No swelling or TTP Left Wrist: Full ROM to flexion and extension. No swelling or TTP Elbows Right Elbow: Full ROM. No swelling or TTP. No TTP of the medial epicondyle. No TTP of the lateral epicondyle Left Elbow: Full ROM. No swelling or TTP. No TTP of the medial epicondyle. No TTP of the lateral epicondyle Shoulders Right shoulder: No swelling noted. No TTP of the AC joint. No TTP of the subacromial bursa. No TTP of the posterior shoulder Left shoulder: No swelling noted. No TTP of the AC joint. No TTP of the subacromial bursa. No TTP of the posterior shoulder Slightly decreased ROM bilaterally to about 100 degrees Knees Right knee: Full ROM. No swelling noted. No TTP of the knee joint line. No TTP of pes anserine bursa Left knee: Full ROM. No swelling noted. No TTP of the knee joint line. No TTP of pes anserine bursa. Crepitations felt bilaterally Ankles Right ankle: Good ankle dorsiflexion and plantar flexion. No swelling. No TTP of the ankle joint Left ankle: Good ankle dorsiflexion and plantar flexion. No swelling. No TTP of the ankle joint Feet Right foot: Negative squeeze test Left foot: Negative squeeze test Tender points? No tenderness to palpation of the bilateral trapezius, supraspinatus, anterior costochondral junctions, bilateral suboccipital muscle insertions SKIN Small PsO patch behind ear Vital Signs: Last Vital Signs Pulse 63 06/20/25 08:16 BP 132/90 H 06/20/25 08:16 Pulse Ox 98 06/20/25 08:16 Oxygen Delivery Method Room Air 06/20/25 08:16 BMI result Body Mass Index 32.8 Results Reviewed Results Reviewed: Laboratory Tests 09/14/24 14:27 WBC 6.2 RBC 5.03 Hgb 15.4 Hct 44.2 Plt Count 217 ESR 5 Sodium 142 Potassium 3.5 Chloride 110 H Carbon Dioxide 25 BUN 17 H Creatinine 1.02 AST 31 ALT 38 C-Reactive Protein 0.16 Laboratory Tests 09/14/24 14:27 Hepatitis A IgM Ab Nonreactive Hep Bs Antigen Negative Hep Bs Antibody REACTIVE Hep B Core Total Ab Reactive Hepatitis C Ab (EIA) Nonreactive Assessment & Plan Assessment & Plan (1) Psoriatic arthritis: Comment: Onset 10/2020 methotrexate started 01/2021 Humira added effective Code(s): L40.50 - Arthropathic psoriasis, unspecified Category: Medical Plan: #PsA/PsO Patient is a 60 y.o male with with PsO and PsA. Currently overall doing well. No dactylitis seen today on exam Small patch of psoriasis behind left ear Plan - 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 20mg weekly - Folic Acid 1 mg - Humira 40mg SC every other week - Labs today: CBC, CMP, ESR, CRP, Hepatitis panel and HB VL - RTC 6 months - Labs before visit: CBC, CMP, ESR, CRP (2) Long-term use of immunosuppressant medication: Code(s): Z79.60 - half-way (current) use of unspecified immunomodulators and immunosuppressants Category: Medical Plan: #Long-term Use of TNF Inhibitors: Humira Discussed with the patient the benefits and risks of TNF inhibitors for the management of the rheumatic condition Benefits include reduce pain, maintenance of remission and reduction of flares as well as ?progression of the disease Risks include injection sites/infusion reactions, serious infections (such as bacterial infections, opportunistic infections), malignancy, delaminating syndromes, autoimmune phenomena, CHF exacerbations, palmar plantar psoriasis and cytopenias Recommended rotating injection sites, and holding medication during and for up to 1 week after resolution of a febrile illness or open skin wound (3) 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, half-way, current use: Code(s): Z79.631 - half-way (current) use of 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 Limit alcohol and avoid Bactrim ? 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
--- OUTSIDE RECORDS SUMMARY | 2025-06-20 08:13 | XMS_ITS | Clinical Summary ---
Author Organization [place] [id number] [facility] Building Address [address] [place] [address] Phone Care Team Providers Care Manufacture Specialist Name Role Phone Nikolay Lopez MD Primary Care Provider [phone] Allergies Active Allergy Reactions Criticality Noted Date Comments Pectin 09/07/2011 Prednisone Itching 10/30/2020 Medications folic acid (FOLVITE) 1 mg tablet Take 1 Tablet by mouth daily. 06/22/20 24 Active methotrexate 2.5 mg tablet Take 6 Tablets by mouth once a week. 02/16/20 22 Active betamethasone, augmented, (DIPROLENE-AF) 0.05 % cream Mix with dovonex cream and apply to affected areas BID (avoid face) for 4 weeks then stop 11/13/19 22 Active calcipotriene (DOVONEX) 0.005 % cream Mix with clobetasol cream and apply to affected areas BID for 4 weeks then stop 11/13/19 22 Active adalimumab (Humira,CF, Pen) 40 mg/0.4 mL pen Inject 40 mg into the skin every 14 days. 07/27/20 21 Active triamcinolone (KENALOG) 0.1 % ointment To affected area 2-3 times daily 05/19/20 21 Active aspirin 81 mg EC tablet 1 TABLET DAILY Activ e fexofenadine (MARICRUZ) 180 mg tabletIndications:Oth er seasonal allergic rhinitis TAKE 1 TABLET BY MOUTH EVERY DAY 90 tablet 1 09/20/19 25 Active atorvastatin (LIPITOR) 10 mg tabletIndications:Pur e hyperglyceridemia TAKE 1 TABLET BY MOUTH EVERY DAY 90 tablet 1 03/18/20 25 Active lisinopril-hydroCHLOR Othiazide (PRINZIDE,ZESTORETIC) 20-12.5 mg per tablet TAKE 2 TABLETS BY MOUTH EVERY DAY 180 tablet 1 03/18/20 25 Active Active Problems Problem Noted Date Diagnosed Date Psoriasis 01/08/2021 History of COVID-19 10/30/2020 Overview (08/07/2024): 09/25 - he was asymptomatic, family all got sick, [id number] (80) Psoriatic arthritis ([facility] V24, [facility] V28) 0 09/15/2020 Overview (08/07/2024): Onset fall 10/2020 methotrexate started 01/2021 Humira added TB lung, latent 09/15/2020 Overview (08/07/2024): Pos Quantiferon test 09/2020. Probably had BCG in [facility] as a child Started on isoniazid 09/15/20 - stopped 07/2021 Pre-diabetes 03/01/2019 Obesity (BMI 30-39.9) 08/25/2017 Amblyopia 02/20/2015 Retinal drusen of left eye 02/20/2015 YAMEL (obstructive sleep apnea) 10/12/2011 Seasonal allergies 01/12/2011 GERD (gastroesophageal reflux disease) 1 Hyperlipidemia 11/09/2010 Helicobacter pylori infection 08/26/2006 Overview (08/07/2024): rX 03/09 IMO update Hypertension 08/26/2006 Immunizations Immunization Administration Dates Next Due H1N1 Inj Preservative Free 09/11/2009 Influenza Quadravalent, MDCK , 0.5ml, preservative free (Flucelvax) 6mo and older 05/19/2021,07/10/2020 Influenza Quadravalent, MDCK , 0.5ml, with preservative (Flucelvax) 6mo and older 08/24/2017 Influenza trivalent, 0.5mL, preservative free (Fluarix; FluLaval; Fluzone) ages 6mo and older (Afluria) 3 years and older 06/22/2024,06/02/2016,06/13/2014,2010,09/11/2009 Influenza, Unspecified 06/01/2012 Pneumococcal conjugate 13 va lent (Prevnar 13, PCV13) 2mo and older 08/24/2017 Tdap Tetanus diptheria acell ular pertussis (Boostrix; Adacel) 7yo and older 07/10/2020,07/24/2008 Surgical History Surgery Date Site/Laterality Comments OTHER SURGICAL HISTORY 03/09 PROCEDURE: PSA, TOTAL SCREENING; COMMENT: 0.5 OTHER SURGICAL HISTORY PROCEDURE: DENIES PREVIOUS SURGERY APPENDECTOMY PROCEDURE: LAPAROSCOPIC APPENDECTOMY; COMMENT: 2014, [facility], no complications Medical History Medical History Date Comments Helicobacter pylori (H. pylori) 08/26/2006 DX:Helicobacter pylori (H. pylori); COMMENT: rX 03/09 Unspecified essential hypertension 08/26/2006 DX:Unspecified essential hypertension Hypercholesterolemia 07/24/2008 DX:Hypercho lesterolemia BROWN (nonalcoholic steatohepatitis) 07/24/2008 DX:BROWN (nonalcoholic steatohepatitis); COMMENT: Fatty liver Obstructive sleep apnea 09/30/2011 DX:Obstr uctive sleep apnea; COMMENT: PSG Esophageal reflux DX:Esophageal reflux Amblyopia 02/20/2015 DX:Amblyopia Psoriatic arthritis (CMS/HCC V24, CMS/HCC V28) 09/15/2020 DX:Psoriatic arthritis (HCC) ; COMMENT: Onset fall 2019 TB lung, latent 09/15/2020 DX:TB lung, late nt Psoriasis 01/08/2021 DX:Psoriasis Family History Medical History Relation Name Comments Hypertension Brother Hypertension Father Diabetes Mother Hypertension Mother Breast cancer Sister 1 Hypertension Sister 1 Stroke Stroke Sister 2 Blindness Neg Hx Cataracts Neg Hx Glaucoma Neg Hx Macular degeneration Neg Hx Strabismus Neg Hx Relation Name Status Comments Brother Father Mother Sister 1 Sister 2 Social History Tobacco Use Types Packs/Day Years Used Date Smoking Tobacco: Former Cigarettes Q uit: 09/05/2001 Smokeless Tobacco: Never Tobacco Cessation:Counseling Given: Not Answered Alcohol Use Standard Drinks/Week Comments Yes 0 (1 standard drink = 0.6 oz pur e alcohol) Sex and Gender Information Value Date Recorded Sex Assigned at Not on file Legal Sex Male 10:59 PM EST Gender Identity Not on file Sexual Orientation Not on file Obstetrics History Last Filed Vital Signs Vital Sign Reading Time Taken Comments Blood Pressure 134/83 10/15/2024 12:11 PM EST Pulse 59 10/15/2024 12:11 PM EST Temperature - - Respiratory Rate - - Oxygen Saturation - - Inhaled Oxygen Concentration - - Weight 90.5 kg (199 lb 9.6 oz) 10/15/2024 12:11 PM EST Height 165.1 cm (5' 5 ) 10/15/2024 12:11 PM EST Body Mass Index 33.22 10/15/2024 12:11 PM EST Plan of Treatment Health Maintenance Due Date Last Done Comments RSV Immunization Adult Patients (1 - Risk 50-74 years 1-dose series) 2015 Zoster Vaccines (1 of 2) 2015 Pneumococcal Vaccine: 50+ Years (2 of 2 - PCV20 or PCV21) 08/24/2018 08/24/2017 HIV Screening 08/08/2022 Social Influencers of Health Screening 08/08/2022 Depression Screening 09/05/2024 05/12/2024 COVID-19 Vaccine ( season) 2025 09/16/2021, 12/16/2020, 11/27/2020 Influenza Vaccine (#1) 2025 , 05/19/2021, 07/10/2020, Additional history exists Hypertension/CHF/CAD Annual BMP Blood Test 06/22/2025 06/22/2024, 06/22/2024 Colorectal Cancer Screening: Colonoscopy 11/17/2027 11/16/2017 Cholesterol Screening (Lipid Panel) 06/22/2029 06/22/2024, 06/22/2024 DTaP,Tdap,and Td Vaccines (3 - Td or Tdap) 07/10/2030 07/10/2020, 07/24/2008 Hepatitis C Screening Completed 09/09/2020 HIB Vaccines Aged Out No longer eligi ble based on patient's age to complete this topic HPV Vaccines Aged Out No longer eligi ble based on patient's age to complete this topic Hepatitis A Vaccines Aged Out No long er eligible based on patient's age to complete this topic Hepatitis B Vaccines Aged Out No long er eligible based on patient's age to complete this topic IPV Vaccines Aged Out No longer eligi ble based on patient's age to complete this topic MMR Vaccines Aged Out No longer eligi ble based on patient's age to complete this topic Meningococcal ACWY Vaccine Aged Out N o longer eligible based on patient's age to complete this topic Meningococcal B Vaccine Aged Out No l onger eligible based on patient's age to complete this topic RSV Immunization Patients Under 20 months Aged Out No longer eligible based on patient's age to complete this topic Varicella Vaccines Aged Out No longer eligible based on patient's age to complete this topic Procedures Procedure Name Priority Date/Time Associated Diagnosis Comments ANNUAL BMP BLOOD TEST Routine 06/22/2024 LIPID PANEL Routine 06/22/2024 DEPRESSION SCREENING Routine 05/12/2024 HEPATITIS C SCREENING Routine 09/09/2020 COLONOSCOPY Routine 11/16/2017 from Last 3 Months or Most Recently Relevant to Health Maintenance Results * Annual BMP Blood Test (06/22/2024) [facility] Annual BMP Blood Test abstracted [facility] Provider HEALTH MAINTENANCE Final Result * Lipid panel (06/22/2024) [facility] LDL/HDL Ratio 3 Triglycerides 215 mg/dL Cholesterol 136 mg/dL HDL 53 mg/dL LDL Cholesterol 40 mg/dL Blood Venous blood specimen / Unknown [facility] Provider LAB BLOOD ORDERABLES Jeni l Result * Depression Screening (05/12/2024) [facility] Depression Screening abstracted [facility] Provider HEALTH MAINTENANCE Final Result * Hepatitis C Screening (09/09/2020) [facility] Hepatitis C Screening abstracted [facility] Provider HEALTH MAINTENANCE Final Result * Colonoscopy (11/16/2017) [facility] Colonoscopy no interpretation , abstracted Anatomical Region Laterality Modality Other [facility] Provider HEALTH MAINTENANCE Final Result from Last 3 Months or Most Recently Relevant to Health Maintenance Insurance [facility] Care Teams Manufacture Specialist Relationship Specialty Start Date End Date Nikolay Lopez MD [address] [place] [id number] PCP - General Internal Medicine 10/12/24
[2025-06-20 08:16] VITALS: BP 132/90; PULSE 63; O2SAT 98; BMI 32.8
== END 2025-06-20 08:37 | disposition home or self-care (01) ==
LOC: HO.RHES 08:06
PROVIDERS: PCP Internal Medicine; Visit Provider Student in an Organized Health Care Education/Training Program
DX: L40.50 Arthropathic psoriasis, unspecified (principal); Z79.60 Long term (current) use of unspecified immunomodulators and immunosuppressants; Z79.631 Long term (current) use of antimetabolite agent
CPT/HCPCS: 99214

== ENCOUNTER 2025-06-20 08:05 | Outpatient (REF) | payer OTHER, SELFPAY ==
[2025-06-20 13:28] LABS: MANUAL DIFF FLAG NO
[2025-06-20 13:38] LABS: Hematocrit 42.9 % (42.0-52.0); Hemoglobin 14.2 g/dl (14.0-18.0); Imm Gran Abs Auto 0.01 X10*3/uL (0.00-0.03); Imm Gran Pct Auto 0.2 % (0.0-0.4); Lymphocytes Absolute Auto 3.3 X10*3/uL (1.2-4.9); Mean Corpuscular HGB Conc 33.1 g/dl (31.0-36.0); Mean Corpuscular Hemoglobin 30.0 pg (27.0-33.0); Mean Corpuscular Volume 90.7 fL (80.0-98.0); NRBC Abs Auto 0.000 X10*3/uL (0.0-0.012); NRBC Pct Auto 0.0 /100WBC (0.0-0.2); Platelet Count 225 X10*3/uL (160-400); Red Blood Count 4.73 X10*6/uL (4.60-5.80); White Blood Count 6.5 X10*3/uL (4.8-10.8)
[2025-06-20 14:07] LABS: Alanine Aminotransferase 35 U/L (0-40); Albumin Level 4.4 g/dL (3.5-5.0); Alkaline Phosphatase 93 U/L (39-117); Anion Gap 12 (12-20); Aspartate Amino Transferase 38 U/L (5-37); Blood Urea Nitrogen 15 mg/dL (9-16); Calcium 9.3 mg/dL (8.4-10.2); Carbon Dioxide 28 mmol/L (22-29); Chloride 107 mmol/L (96-108); Estimated Glomerular Filt Rate > 60; Potassium 3.5 mmol/L (3.3-5.1); Sodium 143 mmol/L (135-145); Total Protein 7.3 g/dL (6.5-8.0)
[2025-06-21 03:35] LABS: HBS Num1 78.63 mIU/mL (0-7.99); HBc Num1 1.90 S/CO (0.00-0.79); HBsAGNum1 0.31 S/CO (0.00-0.99); Hepatitis A Antibody IgM 0.20 Index (0-0.79); Hepatitis B Surface Antigen Negative (Negative); ~HepC Num1 0.10 S/CO (0.00-0.79); ~Hepatitis A Antibody IgM Nonreactive (Nonreactive); ~Hepatitis B Surface Antibody REACTIVE (Nonreactive); ~Hepatitis C Antibody Nonreactive (Nonreactive)
[2025-06-21 04:28] LABS: HBc Num2 1.98 S/CO; HBc Num3 2.02 S/CO
[2025-06-21 13:58] LABS: Hepatitis B Viral DNA Qn - cp NOT DETECTED Log IU/mL (NOT DETECTED); Hepatitis B Viral DNA Qn-IU/mL NOT DETECTED (NOT DETECTED)
== END 2025-06-20 08:06 | disposition home or self-care (01) ==
LOC: HO.HKASLDS 08:05
PROVIDERS: PCP Internal Medicine; Visit Provider Student in an Organized Health Care Education/Training Program
DX: L40.50 Arthropathic psoriasis, unspecified (principal); R76.89 Other specified abnormal immunological findings in serum; Z11.59 Encounter for screening for other viral diseases; Z79.899 Other long term (current) drug therapy; Z79.631 Long term (current) use of antimetabolite agent; Z79.60 Long term (current) use of unspecified immunomodulators and immunosuppressants
CPT/HCPCS: 36415; 80053; 85025; 85652; 86140; 86704; 86706; 86709; 86803; 87340; 87517; 99212